=== PATIENT | female | born 1960 | race Caucasian/White ===

== ENCOUNTER 2021-01-23 11:43 | Emergency (ER) | payer OTHER ==
[2021-01-23 11:51] VITALS: BMI 29.7
[2021-01-23] MEDS ORDERED: MECLIZINE HCL 25 MG TABLET (FP) PO ONE (12:25)
[2021-01-23] MEDS ORDERED: SODIUM CHLORIDE 1,000 ML IV STA (12:26)
[2021-01-23] MEDS ORDERED: MECLIZINE HCL 25 MG TABLET (FP) ONE (12:28)
[2021-01-23 13:07] LABS: BASO % 3.4 % (0-2.0); EOS % 1.4 % (0-4.5); HEMATOCRIT 42.5 % (32.4-45.2); HEMOGLOBIN 14.8 GM/dl (10.7-15.3); LYMPH % 30.8 % (8-40); MCH 31.2 pg (25.7-33.7); MCHC 34.8 g/dl (32.0-36.0); MEAN CELL VOLUME 89.5 fl (80-96); MEAN PLT VOLUME 8.8 fl (7.5-11.1); MONO % 5.7 % (3.8-10.2); NEUT % 58.7 % (42.8-82.8); PLATELET COUNT 338 K/MM3 (134-434); RBC 4.74 M/mm3 (3.60-5.2); RDW 13.1 % (11.6-15.6); WHITE BLOOD COUNT 7.6 K/mm3 (4.0-10.8)
[2021-01-23 13:15] LABS: ALBUMIN 4.2 g/dl (3.4-5.0); ALK PHOS 98 U/L (45-117); ANION GAP 11 MMOL/L (8-16); BILIRUBIN,TOTAL 0.7 mg/dl (0.2-1); CALCIUM 9.5 mg/dl (8.5-10); CHLORIDE 99 mmol/L (98-107); CO2 27 mmol/L (21-32); CREATININE 0.4 mg/dl (0.55-1.3); GLUCOSE,RANDOM 132 mg/dl (74-106); SGOT/AST 24 U/L (15-37); SGPT/ALT 22 U/L (13-61); SODIUM 137 mmol/L (136-145); TOT PROT 7.4 g/dl (6.4-8.2)
[2021-01-23 14:07] VITALS: BP 175/73; PULSE 75; TEMP 97.8
== END 2021-01-23 15:45 | disposition home or self-care (01) ==
LOC: FER 11:43
PROC: 3E0337Z Introduction of Electrolytic and Water Balance Substance into Peripheral Vein, Percutaneous Approach (ICD-10-PCS; principal; 2021-01-23)
DX: R42 Dizziness and giddiness (principal)
CPT/HCPCS: 36415; 70450-TC; 80053; 82550; 84484; 85025; 93005; 99284-25

== ENCOUNTER 2021-01-31 04:23 | Day surgery (SDC) | payer OTHER ==
[2021-01-30 11:29] VITALS: BMI 30.2
[2021-01-31 12:11] VITALS: TEMP 98.6
[2021-01-31] MEDS ORDERED: IOHEXOL 180 MG/1 ML ML IJ ONE (12:56)
[2021-01-31] MEDS ORDERED: DEXAMETHASONE SOD PHOSPHATE 10 MG/1 ML VIAL IVPUSH ONE (12:57)
[2021-01-31] MEDS ORDERED: LIDOCAINE 1% P/F 10 MG/ML VIAL PNB ONE (12:57)
[2021-01-31 15:41] VITALS: BP 137/62; PULSE 81
== END 2021-01-31 14:16 | disposition home or self-care (01) ==
LOC: JASU-SURG 04:23
PROVIDERS: ATTEND Pain Medicine Pain Medicine
PROC: 3E0R33Z Introduction of Anti-inflammatory into Spinal Canal, Percutaneous Approach (ICD-10-PCS; 2021-01-31)
PROC: B01BYZZ Fluoroscopy of Spinal Cord using Other Contrast (ICD-10-PCS; 2021-01-31)
PROC: 3E0R3BZ Introduction of Anesthetic Agent into Spinal Canal, Percutaneous Approach (ICD-10-PCS; principal; 2021-01-31 13:00)
DX: M54.16 Radiculopathy, lumbar region (principal); M48.061 Spinal stenosis, lumbar region without neurogenic claudication
CPT/HCPCS: 76000-TC-FY; J1100